=== PATIENT | male | born 1985 | race Caucasian/White ===

== ENCOUNTER → 2021-08-14 09:22 | Outpatient (CLI) | payer OTHER, SELFPAY ==
[2021-08-14 22:13] LABS: COVID19 - ORCAS (NP or Nasal) POSITIVE (Negative)
== END ==
PROVIDERS: PCP Physician Assistant; Referring Provider Family Medicine; Visit Provider Family Medicine
DX: U07.1 COVID-19 (principal); Z20.822 Contact with and (suspected) exposure to COVID-19
CPT/HCPCS: U0003